=== PATIENT | female | born 1975 | race Caucasian/White ===

== ENCOUNTER 2017-06-16 11:12 | Outpatient (CLI) | payer OTHER | END 2017-06-16 11:13 | disposition home or self-care (01) | LOC: BICMAMMO 11:12 | PROVIDERS: ATTEND Obstetrics & Gynecology | DX: Z12.31 Encounter for screening mammogram for malignant neoplasm of breast (principal); N63.20 Unspecified lump in the left breast, unspecified quadrant; Z80.3 Family history of malignant neoplasm of breast | CPT/HCPCS: 77063; 77067 ==

== ENCOUNTER 2018-08-13 07:47 | Outpatient (CLI) | payer BC ==
--- NOTE | 2018-08-14 14:59 | MMO ---
FILMS COMPARED: The present examination has been compared to a prior imaging study performed at [facility] on 06/19/2014. MAMMOGRAM FINDINGS: There are scattered fibroglandular densities. There is a stable mass with associated biopsy clip seen in the left breast. There are no suspicious masses, calcifications or areas of architectural distortion. IMPRESSION: STABLE MASS IN THE LEFT BREAST IS BENIGN. A ROUTINE FOLLOW-UP MAMMOGRAM IN 1 YEAR IS RECOMMENDED. ACR BI-RADS Category 2 - Benign finding
== END 2018-08-13 07:48 | disposition home or self-care (01) ==
LOC: BICMAMMO 07:47
PROVIDERS: ATTEND Obstetrics & Gynecology
DX: Z12.31 Encounter for screening mammogram for malignant neoplasm of breast (principal); N63.20 Unspecified lump in the left breast, unspecified quadrant
CPT/HCPCS: 77063; 77067

== ENCOUNTER 2018-11-06 07:51 | Outpatient (CLI) | payer BC ==
[2018-11-06] MEDS ORDERED: ISOVUE-370 76%-LOCM 1 ML ONE (09:02)
--- NOTE | 2018-11-06 09:07 | CT ---
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 Technique: Pre and postcontrast enhanced CTA images obtained with 2-D and 3-D reconstruction images p erformed. FINDINGS: The lung parenchyma is unremarkable. No evidence of mediastinal, axillary or hilar lymphadenopathy seen. The patient has a pectus excavatum deformity. The thoracic aorta is unremarkable. No evidence of aortic dissections or aneurysms seen. Previously noted area of focal decreased dimension on the AP plane on previous CT from 01/04/2017 is n ot definitively visible at this time. I wonder if some of that was due to patient's aspiration during the course of the exam. It is not reproducible and not visible on this CT. The SMA, celiac, IM A and renal arteries are patent. No evidence of atherosclerotic changes seen in the abdominal aorta. Common and external iliac arterie s are patent. Multilevel congenital lumbar spinal stenosis is present. Impression: Pectus excavatum deformity of the chest with no evidence of CT findings suggesting middle aortic synd harvey. Transcribed Date/Time: 11/06/2018 9:45 AM
== END 2018-11-06 07:52 | disposition home or self-care (01) ==
LOC: BICCT 07:51
PROVIDERS: ATTEND Surgery
DX: M31.4 Aortic arch syndrome [Takayasu] (principal); I35.0 Nonrheumatic aortic (valve) stenosis; M95.4 Acquired deformity of chest and rib
CPT/HCPCS: 71275; 74174; Q9966

== ENCOUNTER 2019-08-15 15:55 | Outpatient (CLI) | payer OTHER, SELFPAY ==
--- NOTE | 2019-08-15 16:42 | MMO ---
Bilateral MAMMO Bilat Screen [facility]. CLINICAL HISTORY: Patient is 44 years old and is seen for screening. The patient has the following family history of breast cancer: maternal aunt, GREAT. The patient has no personal history of cancer. The patient has a history of right Ultrasound Guided Core Biopsy in June, - fibroadenoma, left Ultrasound Guided Core Biopsy in June, - fibroadenoma and left needle biopsy in April, - benign. VIEWS: The views performed were: bilateral craniocaudal with tomosynthesis and bilateral mediolateral oblique with tomosynthesis. FILMS COMPARED: The present examination has been compared to prior imaging studies performed at [facility] on 05/05/2015, 05/17/2016, 06/16/2017 and 08/13/2018. This study has been interpreted with the assistance of computer-aided detection. MAMMOGRAM FINDINGS: There are scattered fibroglandular densities. Left biopsy clip and mass are stable. There are no suspicious masses, suspicious calcifications, or new areas of architectural distortion. IMPRESSION: THERE IS NO MAMMOGRAPHIC EVIDENCE OF MALIGNANCY. A ROUTINE FOLLOW-UP MAMMOGRAM IN 1 YEAR IS RECOMMENDED. THE RESULTS OF THIS EXAM WERE SENT TO THE PATIENT. ACR BI-RADS Category 2 - Benign finding MAMMOGRAPHY NOTE: 1. A negative mammogram report should not delay a biopsy if a dominant of clinically suspicious mass is present. 2. Approximately 10% to 15% of breast cancers are not detected by mammography. 3. Adenosis and dense breasts may obscure an underlying neoplasm. Reported by: CLEVE EASON MD Electonically Signed: [id number]
== END 2019-08-15 15:56 | disposition home or self-care (01) ==
LOC: BICMAMMO 15:55
PROVIDERS: ATTEND Obstetrics & Gynecology
DX: Z12.31 Encounter for screening mammogram for malignant neoplasm of breast (principal); Z80.3 Family history of malignant neoplasm of breast; Z91.89 Other specified personal risk factors, not elsewhere classified
CPT/HCPCS: 77063; 77067

== ENCOUNTER 2020-04-30 22:33 | Emergency (ER) | payer BC ==
[~2020-04-30 22:33] MED LIST: Iopamidol-370 76% 500 ML 1 ML ONE
[2020-04-30 23:22] LABS: #Lymphocytes 0.7 thou/uL (1.20-3.40); #Monocytes 0.4 thou/uL (0.11-0.59); #Neutrophils 8.2 thou/uL (1.40-6.50); %Basophils 0.2 % (0.0-1.0); %Eosinophils 0.2 % (0.0-10.0); %Lymphocytes 7.3 % (21.0-51.0); %Monocytes 4.2 % (0.0-10.0); %Neutrophils 88.2 % (42.0-75.0); Hemoglobin 13.9 g/dL (12.0-16.0); Mean Corpuscular HGB CONC 34.2 g/dL (32.0-36.0); Mean Corpuscular Hemoglobin 31.9 pg (27.0-31.0); Mean Corpuscular Volume 93.3 fL (78.0-98.0); Platelet Count 185 thou/uL (130-400); RBC Distribution Width 11.4 % (11.5-14.5); Red Blood Cell (RBC) Count 4.35 mill/uL (4.20-5.40); White Blood Cell (WBC) Count 9.3 thou/uL (4.8-10.8)
[2020-04-30] MEDS ORDERED: Morphine 4 MG/ML VIAL ONE (23:31)
[2020-04-30] MEDS ORDERED: Ondansetron PF 4 MG/2 ML Vial ONE (23:31)
[2020-04-30 23:41] LABS: ALT (SGPT) 14 U/L (8-55); AST (SGOT) 19 U/L (5-34); Albumin 3.7 g/dL (3.5-5.0); Alkaline Phosphatase 56 U/L (40-110); Anion Gap 15 mmol/L (10-20); BUN (Urea Nitrogen) 11 mg/dL (7.0-18.7); Bilirubin, Total 0.5 mg/dL (0.2-1.2); Calc. Creatinine Clearance 0 mL/min (70-130); Calcium 8.7 mg/dL (7.8-10.44); Carbon Dioxide 20 mmol/L (22-29); Chloride 105 mmol/L (98-107); Estimated GFR-MDRD 63; Globulin 2.8 g/dL (2.4-3.5); Glucose 114 mg/dL (70-105); Lipase 12 U/L (8-78); Potassium 3.5 mmol/L (3.5-5.1); Protein, Total 6.5 g/dL (6.0-8.3); Sodium 136 mmol/L (136-145)
[2020-05-01 00:08] LABS: Bacteria/HPF None Seen HPF (None Seen); Bilirubin Negative (Negative); Blood, Urine Negative (Negative); Clarity Clear (Clear); Glucose, Urine (Dipstick) Normal (Negative); Ketone, Urine 60 mg/dL (Negative); Leukocyte Negative Leu/uL (Negative); Nitrite Negative (Negative); Protein, Urine (Dipstick) 70 mg/dL (Neg-Trace); RBC/HPF 0-3 HPF (0-3); Specific Gravity, Urine 1.039 (1.002-1.036); Squamous Epithelial 0-3 HPF (0-3); Urobilinogen Normal mg/dL (Less than 2); WBC/HPF 0-3 HPF (0-3)
[2020-05-01 00:14] LABS: Pregnancy Test - Urine (BHCG) Negative (Negative); Pregu Control Background? CLEAR/WHITE (CLR/WHITE); Pregu Control Bar Appear? YES (CONTROL BAR); Specific Gravity 1.039 (1.002-1.036)
[2020-05-01] MEDS ORDERED: Fentanyl 100 MCG/2 ML VIAL ONE ×2 (00:15→01:21)
--- NOTE | 2020-05-01 07:59 | CT ---
PRELIMINARY REPORT/[facility]/EMERGENCY AFTER HOURS PROCEDURE: EXAM: CT Abdomen and Pelvis with Intravenous Contrast CLINICAL HISTORY: PT REPORTS PERIUMBILICAL ABD PAIN. HAS NO APPETITE TECHNIQUE: Axial computed tomography images of the abdomen and pelvis with intravenous contrast. CONTRAST: With; ISOVUE 370,100mL COMPARISON: None provided. FINDINGS: The lung bases are clear; no pleural fluid is seen. The liver is normal in size. No focal liver lesion is seen. Gallbladder surgically absent, and ther e is mild-moderate associated prominence of the biliary tree. Pancreas and adrenal glands are normal . Spleen is normal in size. Each kidney is unremarkable. There is no acute abnormality in the keyonna r abdominal vasculature. Stomach and duodenum were negative. The proximal small bowel measures up t o 2.7 cm in diameter. There are scattered small bowel air-fluid levels as well, and there is no defi nite thickening of the small bowel wall. The terminal ileum and the appendix are both normal. There is diffuse concentric thickening and edema of the colonic wall extending from the cecum through the descending colon. The proximal sigmoid colon is less affected. There is induration of the tracey colonic fat. No definite free intraperitoneal fluid is seen. Numerous normal-sized lymph nodes were identified in the abdomen, especially in the mesentery and in the upper abdomen. No adenopathy is s een. There is no pneumoperitoneum or pneumatosis. In the pelvis, the urinary bladder uterus and ovaries are all grossly negative. On bone windows, no acute osseous abnormality is seen. IMPRESSION: 1. Moderate colitis (with borderline evidence for jejunal enteritis). 2. Probable reactive lymph nodes. 3. Surgical absence of the gallbladder with associated reservoir effect in the biliary tree. ELECTRONICALLY SIGNED BY: Luis Fontenot MD May 01, 2020 12:57:24 AM [employer] K[employer]TLE OPERATOR This report is intended for review by the ordering physician only, in accordance of law. If you recei ve this report in error, please call [facility] at [phone]. FINAL REPORT CT ABDOMEN AND PELVIS: Diffuse mural thickening of the colon is noted as described on the preliminary report. Prominent intrahepatic biliary duct suggesting reservoir effect from prior cholecystectomy. I am in agreement with the preliminary report. POS: OFF
== END 2020-05-01 01:40 | disposition home or self-care (01) ==
LOC: ERS 22:33
DX: K52.9 Noninfective gastroenteritis and colitis, unspecified (principal)
CPT/HCPCS: 36415; 74177; 80053; 81003; 81015; 81025; 83690; 85025; 87635; 96374; 96375; 96376; J2270; J2405; J3010; Q9967; U0003

== ENCOUNTER 2020-08-17 08:04 | Outpatient (CLI) | payer BC | END 2020-08-17 08:05 | disposition home or self-care (01) | LOC: BICMAMMO 08:04 | PROVIDERS: ATTEND Obstetrics & Gynecology | DX: Z12.31 Encounter for screening mammogram for malignant neoplasm of breast (principal); Z80.3 Family history of malignant neoplasm of breast; Z91.89 Other specified personal risk factors, not elsewhere classified | CPT/HCPCS: 77063; 77067 ==

== ENCOUNTER 2022-08-23 08:52 | Outpatient (CLI) | payer BC | END 2022-08-23 08:53 | disposition home or self-care (01) | LOC: BICMAMMO 08:52 | PROVIDERS: ATTEND Obstetrics & Gynecology | DX: Z12.31 Encounter for screening mammogram for malignant neoplasm of breast (principal); Z80.3 Family history of malignant neoplasm of breast; Z91.89 Other specified personal risk factors, not elsewhere classified | CPT/HCPCS: 77063; 77067 ==